=== PATIENT | female | born 1980 ===

== ENCOUNTER 2018-08-21 10:05 | Day surgery (SDC) | payer SELFPAY ==
[2018-08-19 08:32] VITALS: BMI 19.9
--- NOTE | 2018-08-21 11:26 | CP.SDSHP ---
Same Day Surgery H & P - History Proposed Procedure: US guided FNA of left thyroid nodule Pre-Op Diagnosis: left thyroid nodule - Allergies Allergies: Allergies No Known Allergies Allergy (Verified 08/19/18 08:32) - Impression Impression: Pt with a 1.5 cm left thyroid nodule. Plan US guided FNA. Pt. Evaluated Today:Candidate for Anesthesia & Procedure: No Short Stay Discharge - Short Stay Discharge Admitting Diagnosis/Reason for Visit: DX:THYROID NODULE- E04.1 Disposition: HOME/ ROUTINE Referrals: Radha Eldridge MD [Primary Care Provider] -
--- NOTE | 2018-08-21 11:27 | PCM.SURG1 ---
Surgeon's Initial Post Op Note - Surgeon's Notes Surgeon: Aston Macias MD Bass Guitar Teacher: NONE Type of Anesthesia: Local Pre-Operative Diagnosis: left thyroid nodule Operative Findings: 1.5 cm solid left thyroid nodule Post-Operative Diagnosis: left thyroid nodule Operation Performed: US guided FNA of left thyroid nodule Specimen/Specimens Removed: 25 g FNA x 5 passes Estimated Blood Loss: EBL {In ML}: 0 Blood Products Given: N/A Drains Used: No Drains Post-Op Condition: Good Date of Surgery/Procedure: 08/21/18 Time of Surgery/Procedure: 11:20
--- NOTE | 2018-08-22 13:58 | US ---
PROCEDURE: Date of Procedure: 08/21/2018 PROCEDURE: 1. Ultrasound guided FNA of left thyroid nodule, CPT 68094 2. Ultrasound guidance for FNA, 73861 Medications: 3cc 1% Lidocaine HISTORY: Enlarged left thyroid nodule. TECHNIQUE: Following informed consent and procedure time-out, a limited ultrasound patient's neck confirmed the presence of a 1.7 cm complex left thyroid nodule which is predominantly solid. After the patient's neck was prepped and draped in the usual sterile fashion, the skin was anesthetized with 1% lidocaine. Ultrasound-guided fine needle aspiration was then performed of the dominant left thyroid nodule. A total of 4 passes were made into the nodule with 25 gauge needle under ultrasound guidance. The FNA specimen was sent for routine pathology and genetics. Post biopsy ultrasound showed no hematoma. IMPRESSION: Ultrasound-guided FNA of the dominant left thyroid nodule.
== END 2018-08-21 11:25 | disposition home or self-care (01) ==
LOC: C.SPRAD 10:05
PROVIDERS: ATTEND Radiology Vascular & Interventional Radiology
DX: E04.1 Nontoxic single thyroid nodule (principal)